=== PATIENT | female | born 1955 | race Caucasian/White ===

== ENCOUNTER → 2016-10-25 | Outpatient (CLI) | payer BC ==
[~2016-10-25] MED LIST: BP MED; SIMV10TA5 OR
[2016-10-25 10:48] LABS: BASO % 0.6 %; BASO ABS # 0.04 K/uL (0-0.2); COMPLETE YES; HEMATOCRIT 43.6 % (37-47); IG% 0.3 %; LYMPH ABS # 2.61 K/uL (1.2-3.4); MEAN CELL VOLUME 89.9 fL (80-100); MEAN CORPUSCULAR HEMOGLOBIN 29.7 pg (25-34); MEAN PLATELET VOLUME 9.5 fL (7.4-10.4); MONO % 7.9 %; NEUT % 52.2 %; PLATELET COUNT 285 K/uL (130-400); RED BLOOD COUNT 4.85 M/uL (4.2-5.4); WHITE BLOOD COUNT 7.06 K/uL (4.8-10.8)
[2016-10-25 11:08] LABS: URINE APPEARANCE CLEAR (CLEAR); URINE BILIRUBIN NEG (NEG); URINE COLOR DK YELLOW; URINE NITRITE NEG (NEG); URINE PH 5.5 (4.5-7.5); URINE SPECIFIC GRAVITY 1.027 (1.000-1.030); UROBILINOGEN NEG (NEG)
[2016-10-25 11:11] LABS: MANUAL MICROSCOPIC REQUIRED? NO; REVIEW REQ? NO
[2016-10-25 11:27] LABS: BLOOD UREA NITROGEN 14 mg/dl (7-18); BUN/CREATININE RATIO 18.3 (10-20); CARBON DIOXIDE 28 mmol/L (21-32); CHLORIDE 107 mmol/L (98-107); CREATININE 0.79 mg/dl (0.60-1.20); GLUCOSE 96 mg/dl (70-99); POTASSIUM 4.2 mmol/L (3.5-5.1); SODIUM 142 mmol/L (136-145)
[2016-10-25 11:28] LABS: ALB/GLOB RATIO 0.9 (0.9-2); ALT/SGPT 52 U/L (12-78); AST/SGOT 31 U/L (15-37); CALCIUM 8.8 mg/dl (8.5-10.1); CHOLESTEROL 174 mg/dl (0-200)
[2016-10-25 11:38] LABS: ALKALINE PHOSPHATASE 96 U/L (45-117); CHOLESTEROL/HDL RATIO 3.8; HDL CHOLESTEROL 46 mg/dl; LDL CHOLESTEROL CALCULATED 93 mg/dl; TRIGLYCERIDES 173 mg/dl (0-150); VERY LOW DENSITY LIPOPROT CALC 35 mg/dl
== END | disposition home or self-care (01) ==
LOC: C.LABBC 08:08
PROVIDERS: ATTEND Nurse Practitioner Adult Health
DX: R39.15 Urgency of urination (principal); G47.19 Other hypersomnia; E78.5 Hyperlipidemia, unspecified; I10 Essential (primary) hypertension

== ENCOUNTER → 2016-10-31 | Outpatient (CLI) | payer BC ==
--- NOTE | 2016-10-31 08:38 | DIAGNOSTIC IMAGING REPORT ---
EXAMINATION: PELVIC ULTRASOUND [is transabdominal and endovaginal scanning) CLINICAL HISTORY: D25.9 Uterus [id number] Female pelvic painR19.4 Change in bowel COMPARISON STUDY: October 2006 FINDINGS: The uterus measured 6.4 x 2.6 x 2.2 cm. There is a suspected 4.5 cm right uterine fibroid. There is a second presumed fibroid within the lower uterine segment anteriorly measuring 13 mm.. The endometrial stripe measured 4 mm. The right ovary measured 31 x 18 x 29 mm. It should be noted that the ovary was poorly visualized.. The left ovary measured not visualized. There is no ultrasonographic evidence of ovarian torsion. It should be noted that ovarian torsion can be present with normal Doppler ultrasonographic findings. There was no evidence of pathologic free pelvic fluid. IMPRESSION: 1. Somewhat limited study from a technical standpoint. 2. 2 uterine fibroids are suspected measuring 4.5 cm and 1.3 cm respectively. 3. No right ovarian abnormalities identified. Nonvisualization of the left ovary Electronically signed by: Niranjan Orourke M.D. 10/31/2016 8:37 AM Dictated Date/Time: 10/31/2016 8:34 AM
--- NOTE | 2016-11-03 09:59 | DIAGNOSTIC IMAGING REPORT ---
EXAMINATION: PELVIC ULTRASOUND [is transabdominal and endovaginal scanning) CLINICAL HISTORY: D25.9 Uterus [id number] Female pelvic painR19.4 Change in bowel COMPARISON STUDY: October 2006 FINDINGS: The uterus measured 6.4 x 2.6 x 2.2 cm. There is a suspected 4.5 cm right uterine fibroid. There is a second presumed fibroid within the lower uterine segment anteriorly measuring 13 mm.. The endometrial stripe measured 4 mm. The right ovary measured 31 x 18 x 29 mm. It should be noted that the ovary was poorly visualized.. The left ovary measured not visualized. There is no ultrasonographic evidence of ovarian torsion. It should be noted that ovarian torsion can be present with normal Doppler ultrasonographic findings. There was no evidence of pathologic free pelvic fluid. IMPRESSION: 1. Somewhat limited study from a technical standpoint. 2. 2 uterine fibroids are suspected measuring 4.5 cm and 1.3 cm respectively. 3. No right ovarian abnormalities identified. Nonvisualization of the left ovary Electronically signed by: Niranjan Orourke M.D. 10/31/2016 8:37 AM Dictated Date/Time: 10/31/2016 8:34 AM
== END | disposition home or self-care (01) ==
LOC: C.ULTR 07:38
PROVIDERS: ATTEND Nurse Practitioner Adult Health
DX: D25.9 Leiomyoma of uterus, unspecified (principal); R10.2 Pelvic and perineal pain; R19.4 Change in bowel habit

== ENCOUNTER → 2016-12-22 | Outpatient (CLI) | payer BC | END | disposition home or self-care (01) | LOC: C.PAPS 18:00 | PROVIDERS: ATTEND Obstetrics & Gynecology | DX: Z01.419 Encounter for gynecological examination (general) (routine) without abnormal findings (principal); N95.2 Postmenopausal atrophic vaginitis ==

== ENCOUNTER → 2017-02-05 | Outpatient (CLI) | payer BC ==
--- NOTE | 2017-02-05 14:05 | MAMMOGRAPHY REPORT ---
BILATERAL DIGITAL SCREENING MAMMOGRAM TOMOSYNTHESIS WITH CAD: 02/05/2017 CLINICAL HISTORY: Routine screening. Patient has no complaints. TECHNIQUE: Breast tomosynthesis in addition to standard 2D mammography was performed. Current study was also evaluated with a Computer Aided Detection (CAD) system. COMPARISON: Comparison is made to exams dated: 02/04/2016 mammogram, 01/31/2015 mammogram, 01/30/2014 m ammogram, 01/27/2013 mammogram, 11/03/2011 mammogram, and 09/16/2010 mammogram - [facility] nter. BREAST COMPOSITION: There are scattered areas of fibroglandular density in both breasts. FINDINGS: No suspicious masses, calcifications, or areas of architectural distortion are noted in ei ther breast. There has been no significant interval change compared to prior exams. IMPRESSION: ACR BI-RADS CATEGORY 1: NEGATIVE There is no mammographic evidence of malignancy. A 1 year screening mammogram is recommended. The pa tient will receive written notification of the results. Approximately 10% of breast cancers are not detected with mammography. A negative mammographic report should not delay biopsy if a clinically suggestive mass is present. Itzel Lion M.D. ah/:02/05/2017 11:59:47 Chin Strap Maker: Destiney CARO,R, M, [facility] letter sent: Normal 1/2 BI-RADS Code: ACR BI-RADS Category 1: Negative
== END | disposition home or self-care (01) ==
LOC: C.MAMM 09:43
PROVIDERS: ATTEND Family Medicine
DX: Z12.31 Encounter for screening mammogram for malignant neoplasm of breast (principal)

== ENCOUNTER → 2017-03-24 | Outpatient (CLI) | payer BC ==
--- NOTE | 2017-03-24 16:03 | DIAGNOSTIC IMAGING REPORT ---
PELVIS/BILATERAL HIP 2 VIEWS CLINICAL HISTORY: Bilateral hip pain. Deep groin pain. COMPARISON STUDY: CT of the abdomen and pelvis July 29, 2010. FINDINGS: The sacroiliac joints and symphysis pubis are intact. There is no acute fracture within the pelvis or the hips. No suspicious osseous lesion is identified. Joint spaces are preserved. There is mild osteophytosis of both hips. IMPRESSION: 1. No acute fracture within the pelvis or hips. 2. Mild osteoarthritis of both hips, greater on the left. Electronically signed by: Piter Cook M.D. 03/24/2017 4:01 PM Dictated Date/Time: 03/24/2017 4:00 PM
== END | disposition home or self-care (01) ==
LOC: C.RAD1850 14:58
PROVIDERS: ATTEND Nurse Practitioner Adult Health
DX: M16.0 Bilateral primary osteoarthritis of hip (principal); R10.30 Lower abdominal pain, unspecified

== ENCOUNTER → 2017-06-19 | Outpatient (CLI) | payer BC ==
[~2017-06-19] VITALS: Ht 154.9 cm; Wt 101.2 kg
[~2017-06-19] MED LIST changes: +ASPI81TA28 PO; +CHOL20005 PO; +DLCSR180 PO; +MULT-506 PO; +OMEG10007 PO; +RANI150T85 PO; +ZCR20 PO
[2017-06-19 12:56] VITALS: BP 137/84; PULSE 83; Ht 154.9 cm; Wt 101.2 kg
== END | disposition home or self-care (01) ==
LOC: C.NEUR 12:25
PROVIDERS: ATTEND Internal Medicine Pulmonary Disease
DX: G47.30 Sleep apnea, unspecified (principal); I10 Essential (primary) hypertension

== ENCOUNTER → 2017-09-10 | Outpatient (CLI) | payer BC ==
[~2017-09-10] MED LIST changes: -ASPI81TA28 PO; -CHOL20005 PO; -DLCSR180 PO; -MULT-506 PO; -OMEG10007 PO; -RANI150T85 PO; -ZCR20 PO
--- NOTE | 2017-09-10 13:28 | DIAGNOSTIC IMAGING REPORT ---
FLUOROSCOPIC GUIDED LEFT HIP STEROID INJECTION FLUOROSCOPY TIME: 4 seconds. A single fluoroscopic spot image of the left hip. HISTORY: Left hip pain.. PROCEDURE: After obtaining written informed consent, the patient was placed supine on the fluoroscopy table. A suitable site for needle insertion was marked using fluoroscopic guidance. The left hip was prepped and draped in the usual sterile fashion. 1% lidocaine was used for skin, subcutaneous and deep soft tissue anesthesia. Under intermittent fluoroscopic guidance, a 22 gauge x 3.5 inch spinal needle was inserted into the left hip joint. 2 cc of Optiray 300 was injected to confirm the intra-articular location. This is followed by a mixture of 5cc of 0.5% bupivacaine and 2 cc of betamethasone at the request of the referring physician. The needle was then removed. There were no apparent complications. IMPRESSION: Fluoroscopic-guided left hip steroid injection without immediate complication. Electronically signed by: Richar Bowen M.D. 09/10/2017 1:27 PM Dictated Date/Time: 09/10/2017 1:26 PM
== END | disposition home or self-care (01) ==
LOC: C.RADBC 12:41
PROVIDERS: ATTEND Orthopaedic Surgery
DX: M16.12 Unilateral primary osteoarthritis, left hip (principal)

== ENCOUNTER 2017-10-07 19:09 | Emergency (ER) | payer BC ==
[~2017-10-07] VITALS: Ht 154.9 cm; Wt 100.2 kg
[2017-10-07 19:14] VITALS: TEMP 37; Ht 154.9 cm; Wt 100.2 kg
[2017-10-07 20:00] VITALS: O2SAT 96
[2017-10-07] MEDS ORDERED: GI COCKTAIL PO STA (20:09)
[2017-10-07 20:34] LABS: HEMATOCRIT 44.9 % (37-47); HEMOGLOBIN 15.2 g/dL (12.0-16.0); MEAN CORPUSCULAR HEMOGLOBIN 29.8 pg (25-34); MEAN CORPUSCULAR HGB CONC 33.9 g/dl (32-36); MEAN PLATELET VOLUME 8.8 fL (7.4-10.4); PLATELET COUNT 307 K/uL (130-400); RED CELL DISTRIBUTION WIDTH CV 13.7 % (11.5-14.5); RED CELL DISTRIBUTION WIDTH SD 44.1 fL (36.4-46.3); WHITE BLOOD COUNT 10.31 K/uL (4.8-10.8)
[2017-10-07] MEDS ORDERED: ALUMINUM/MAGNESIUM SUSP 30 ML UDC ONE (20:38)
[2017-10-07] MEDS ORDERED: LIDOCAINE HCL 2% VISC SOLN 20 ML UDC ONE (20:38)
[2017-10-07 20:44] LABS: PTT PATIENT 29.9 SECONDS (21.0-31.0)
[2017-10-07 20:45] LABS: CALCIUM 9.2 mg/dl (8.5-10.1); CREATININE 0.97 mg/dl (0.60-1.20); POTASSIUM 3.8 mmol/L (3.5-5.1)
[2017-10-07 20:50] LABS: CKMB 3.9 ng/ml (0.5-3.6); TOTAL PROTEIN 7.9 gm/dl (6.4-8.2)
--- NOTE | 2017-10-07 20:52 | DIAGNOSTIC IMAGING REPORT ---
CHEST ONE VIEW PORTABLE CLINICAL HISTORY: 62 years-old Female presenting with CP. TECHNIQUE: Portable upright AP view of the chest was obtained. COMPARISON: 10/17/2006. FINDINGS: Atherosclerosis of aortic arch. Cardiac silhouette mildly enlarged. No focal opacity. No large effusion or pneumothorax. Osseous structures normal. Upper abdomen normal. IMPRESSION: 1. Mild cardiomegaly. No other convincing evidence of acute cardiopulmonary disease. Electronically signed by: Rikki Ibrahim M.D. 10/07/2017 8:51 PM Dictated Date/Time: 10/07/2017 8:50 PM
[2017-10-07 22:12] VITALS: BP 151/100; PULSE 79; O2SAT 93
--- NOTE | 2017-10-08 03:26 | EMERGENCY ROOM VISIT NOTE ---
History Report prepared by Flor: Tanner Orr Under the Supervision of: Dr. Carl Yin M.D. First contact with patient: 20:03 Chief Complaint: CARDIAC ASSESSMENT Stated Complaint: CHEST DISCOMFORT Nursing Triage Summary: pt reports chest discomfort all over chest X 2 weeks denies increased sob or radiation History of Present Illness The patient is a 62 year old female who presents to the Emergency Room with complaints of intermittent chest pain beginning two weeks ago. She rates her discomfort as a 3/10 in severity. The patient states she is unsure if she woke up with chest discomfort but reports she has had it for 12 hours persistently today. She reports her symptoms have been accompanied by hot flashes and increased burping. The patient states she took Tums this morning and was given Aspirin at [facility] The patient states she went to [facility] where they sent her here. The patient denies LOC, headache, fevers, chills, diaphoresis, visual changes, neck pain, tearing pain radiating to the back, personal history or family history of aneurysm or pulmonary embolism, uncontrolled hypertension, breathing difficulties, leg swelling, coagulation abnormalities, prolonged travel, recent surgery or immobilization, nausea, vomiting, abdominal pain, melena, hematochezia, urinary symptoms, numbness, weakness, lymphadenopathy, rash, or other complaints. The patient reports a history of hypertension and vertigo. She denies a smoking history. Source of History: patient Onset: two weeks ago Position: chest Symptom Intensity: 3/10 Timing: intermittent Modifying Factors (Relieving): other (Tums, aspirin) Note: Associated symptoms: increased burping and hot flashes Review of Systems See HPI for pertinent positives and negatives. A total of ten systems were reviewed and were otherwise negative. Past Medical & Surgical Medical Problems: (1) HTN (hypertension) (2) Hypertension (3) Vertigo Family History Cancer Heart disease Hypertension Social History Smoking Status: Never Smoker Housing Status: lives alone Occupation Status: employed Current/Historical Medications Miscellaneous Medications Simvastatin (Zocor), 10 MG OR [Bp Med] Allergies Coded Allergies: No Known Allergies (Unverified , 09/16/09) Physical Exam Vital Signs Date Time Temp Pulse Resp B/P (MAP) Pulse Ox O2 Delivery O2 Flow Rate FiO2 10/07/17 22:12 79 20 151/100 93 Room Air 10/07/17 20:41 81 21 143/94 94 Room Air 10/07/17 20:16 91 10/07/17 20:04 80 20 166/103 96 Room Air 10/07/17 20:00 96 Room Air 10/07/17 19:14 37.0 92 20 159/105 95 Room Air Physical Exam GENERAL: Awake, alert, well-appearing, in no distress HENT: Normocephalic, atraumatic. Oropharynx unremarkable. EYES: Normal conjunctiva. Sclera non-icteric. NECK: Supple. No nuchal rigidity. FROM. No masses. RESPIRATORY: Clear to auscultation. No wheezes. No rales. Normal respiratory effort. CARDIAC: Normal rate. Normal rhythm. No murmurs. No rubs. Extremities warm and well perfused. Pulses equal. No JVD. GI: Soft, non-distended. No tenderness to palpation. No rebound or guarding. No masses. RECTAL: Deferred. MUSCULOSKELETAL: Atraumatic. Chest examination reveals no tenderness. There is no CVA tenderness to palpation. No joint edema. LOWER EXTREMITIES: Calves are equal size bilaterally and non-tender. No edema. No discoloration. NEURO: Normal sensorium. No sensory or motor deficits noted. SKIN: No rash or jaundice noted. Medical Decision & Procedures ER Provider Diagnostic Interpretation: X-ray: Per my interpretation, radiologist review. CHEST ONE VIEW PORTABLE CLINICAL HISTORY: 62 years-old Female presenting with CP. TECHNIQUE: Portable upright AP view of the chest was obtained. COMPARISON: 10/17/2006. FINDINGS: Atherosclerosis of aortic arch. Cardiac silhouette mildly enlarged. No focal opacity. No large effusion or pneumothorax. Osseous structures normal. Upper abdomen normal. IMPRESSION: 1. Mild cardiomegaly. No other convincing evidence of acute cardiopulmonary disease. Electronically signed by: Rikki Ibrahim M.D. 10/07/2017 8:51 PM Dictated Date/Time: 10/07/2017 8:50 PM Laboratory Results 10/07/17 20:05 10/07/17 20:05 Test 10/07/17 20:05 10/07/17 20:16 10/07/17 21:38 Red Blood Count 5.10 M/uL (4.2-5.4) Mean Corpuscular Volume 88.0 fL (80-100) Mean Corpuscular Hemoglobin 29.8 pg (25-34) Mean Corpuscular Hemoglobin Concent 33.9 g/dl (32-36) RDW Standard Deviation 44.1 fL (36.4-46.3) RDW Coefficient of Variation 13.7 % (11.5-14.5) Mean Platelet Volume 8.8 fL (7.4-10.4) Prothrombin Time 10.7 SECONDS (9.0-12.0) Prothromb Time International Ratio 1.0 (0.9-1.1) Activated Partial Thromboplast Time 29.9 SECONDS (21.0-31.0) Partial Thromboplastin Ratio 1.2 Anion Gap 7.0 mmol/L (3-11) Est Creatinine Clear Calc Drug Dose 66.1 ml/min Estimated GFR () 73.1 Estimated GFR (Non- 63.0 BUN/Creatinine Ratio 14.2 (10-20) Calcium Level 9.2 mg/dl (8.5-10.1) Total Bilirubin 0.5 mg/dl (0.2-1) Aspartate Amino Transf (AST/SGOT) 29 U/L (15-37) Alanine Aminotransferase (ALT/SGPT) 48 U/L (12-78) Alkaline Phosphatase 100 U/L (45-117) Total Creatine Kinase 296 U/L (26-192) Creatine Kinase MB 3.9 ng/ml (0.5-3.6) Creatine Kinase MB Ratio 1.3 (0-3.0) Total Protein 7.9 gm/dl (6.4-8.2) Albumin 4.0 gm/dl (3.4-5.0) Globulin 3.9 gm/dl (2.5-4.0) Albumin/Globulin Ratio 1.0 (0.9-2) Bedside D-Dimer 148 ng/mlFEU (0-450) Bedside Troponin I < 0.030 ng/ml (0-0.045) Laboratory results reviewed by me Medications Administered Medications (Trade) Dose Ordered Sig/Candice Route Start Time Stop Time Status Last Admin Dose Admin Lidocaine HCl (Viscous Lidocaine 2% Soln) 20 ml STK-MED ONCE .ROUTE 10/07/17 20:38 10/07/17 20:39 DC 10/07/17 20:41 20 ML Al Hydroxide/Mg Hydroxide (Maalox Susp) 30 ml STK-MED ONCE .ROUTE 10/07/17 20:38 10/07/17 20:39 DC 10/07/17 20:41 30 ML ECG Per My Interpretation Indication: chest pain Rate (beats per minute): 89 Rhythm: normal sinus Findings: no acute ischemic change, no ectopy, other (Normal intervals) Change: [facility] EKG: Sinus rhythm with a rate of 90, questionable Septal Q wave, otherwise no ischemia or ectopy. REPEAT: Normal sinus with a rate of 78. Normal intervals, no acute ischemia, no ectopy ED Course 2007: The patient was evaluated in room C10. A complete history and physical exam was performed. 2008: Ordered Gi Cocktail 24 ml PO. 2037: Ordered Maalox Susp 30 ml IV, Lidocaine HCL 20 ml IV. 2116: I reevaluated the patient and she is still feeling the same after the Cocktail. 2207: I reevaluated the patient. Discussed results and discharge instructions: She verbalized understanding and agreement. The patient is ready for discharge. Medical Decision Triage Nursing notes reviewed and agree them. The patient's history was concerning for chest pain. Differential diagnosis: Etiologies such as musculoskeletal,gastrointestinal, cardiac ischemia, aortic dissection, pulmonary embolism, pneumonia, pneumothorax, infections, pericarditis, myocarditis, esophageal rupture, as well as others were entertained. Physical examination: As above. ER treatment provided: GI cocktail On reassessment the patient felt about the same. Diagnostic interpretation by me: The electrocardiogram was negative for pathologic change 2. The labs revealed an unremarkable CBC and chemistry panel. LFTs lipase negative. Troponin negative 2. Additional blood work was felt to be unnecessary given that the patient's pain was present for greater than 12 hours. A d-dimer was performed and it was negative. Based on Wells criteria and a negative dimer no further imaging for PE was performed. Imaging studies: Chest x-ray as above The patient is doing very well. She had a slight elevation of her total CK which could explain her discomfort in her chest. Her troponin was negative 2. Her pain is been there for quite some time. She has no ischemic changes on EKG. I discussed close outpatient follow-up for further evaluation including outpatient stress testing and the patient felt comfortable with this. I gave my usual and customary discussion regarding this issue. By the evaluation outlined above other emergent etiologies such as those listed in the differential, as well as others, were deemed relatively unlikely. The patient was educated about the findings as listed above. All questions were answered and the patient was pleased with the treatment. Return instructions were outlined and the patient was discharged in stable condition. The patient was referred to her PCP tomorrow as scheduled for follow-up for a recheck of the current condition. Medication Reconcilliation Current Medication List: was personally reviewed by me Blood Pressure Screening Patient's blood pressure: Elevated blood pressure Blood pressure disposition: Referred to PCP Impression Primary Impression: Substernal chest pain Scribe Attestation The scribe's documentation has been prepared under my direction and personally reviewed by me in its entirety. I confirm that the note above accurately reflects all work, treatment, procedures, and medical decision making performed by me. Departure Information Dispostion Home / Self-Care Referrals Priyanka Andrews MD (PCP) Forms IMPORTANT VISIT INFORMATION Patient Instructions My [facility] Additional Instructions CHEST PAIN INSTRUCTIONS: Take 1 baby aspirin, 81 mg daily until directed otherwise by your primary doctor. Ibuprofen(Motrin, Advil) may be used for fever or pain. Use 600mg every six hours as needed. Take with food. Avoid using more than 2400mg in a 24 hour period. Do not use 2400mg per day for more than three consecutive days without physician direction. Prolonged inappropriate use can lead to stomach upset or ulcers. (AND/OR) Acetaminophen(Tylenol) may be used for fever or pain. Use 1000mg every six hours as needed. Avoid using more than 4000mg in a 24 hour period. Rest and drink plenty of fluids as tolerated. Continue current medications. Avoid strenuous activities and anything that worsens your pain. Resume normal activities once your symptoms resolve. Return to the ER immediately for worsening or persistent chest pain, abdominal pain, vomiting, fevers, chest pains, difficulty breathing, worsening of your condition, or as needed. Follow up with your primary physician tomorrow for a recheck of your current condition. Discuss stress testing.
== END 2017-10-07 22:30 | disposition home or self-care (01) ==
LOC: C.EDB 19:10 → C.EDC 22:30
DX: R07.2 Precordial pain (principal); I10 Essential (primary) hypertension

== ENCOUNTER → 2017-10-17 | Outpatient (CLI) | payer BC | END | disposition home or self-care (01) | LOC: C.LABSPEC 10:48 | PROVIDERS: ATTEND Nurse Practitioner Family | DX: R10.9 Unspecified abdominal pain (principal) ==

== ENCOUNTER → 2018-02-04 | Day surgery (SDC) | payer BC ==
[2018-02-02 10:24] VITALS: Ht 154.9 cm; Wt 90.9 kg
[~2018-02-04] VITALS: Ht 154.9 cm; Wt 90.9 kg
[~2018-02-04] MED LIST changes: +ASPI81TA28 PO; -BP MED; +CEFAZOLIN 2000MG IV PUSH 15 ML IV SCH; +CHOL20005 PO; +DLCSR180 PO; +FENTANYL CITRATE INJ 50 MCG/1 ML 2 ML VIAL ONE; +LACTATED RINGER'S 1000ML 1,000 ML IV SCH; +LIDOCAINE HCL 2% 2 ML VIAL (20MG/ML) ONE; +MIDAZOLAM HCL 1 MG/ML 2ML VIAL ONE; +MULT-506 PO; +OMEG10007 PO; +PROPOFOL IV EMULSION 10 MG/ML 20 ML VIAL ONE; +RANI150T85 PO; -SIMV10TA5 OR; +ZCR20 PO
== END | disposition home or self-care (01) ==
LOC: EDSTATUS 11:30 → C.PAT 12:50
PROVIDERS: ATTEND Orthopaedic Surgery
DX: G56.01 Carpal tunnel syndrome, right upper limb (principal)

== ENCOUNTER → 2018-02-08 | Outpatient (CLI) | payer BC ==
[~2018-02-08] MED LIST changes: -CEFAZOLIN 2000MG IV PUSH 15 ML IV SCH; -FENTANYL CITRATE INJ 50 MCG/1 ML 2 ML VIAL ONE; -LACTATED RINGER'S 1000ML 1,000 ML IV SCH; -LIDOCAINE HCL 2% 2 ML VIAL (20MG/ML) ONE; -MIDAZOLAM HCL 1 MG/ML 2ML VIAL ONE; -PROPOFOL IV EMULSION 10 MG/ML 20 ML VIAL ONE
--- NOTE | 2018-02-09 06:57 | MAMMOGRAPHY REPORT ---
BILATERAL DIGITAL SCREENING MAMMOGRAM TOMOSYNTHESIS WITH CAD: 02/08/2018 CLINICAL HISTORY: Routine screening. Patient has no complaints. TECHNIQUE: The study was acquired using full field digital technology and interpreted from soft copy. Breast tomosynthesis in addition to standard 2D mammography was performed. Current study was also ev aluated with a Computer Aided Detection (CAD) system. COMPARISON: Comparison is made to exams dated: 02/05/2017 mammogram, 02/04/2016 mammogram, 01/31/2015 m ammogram, 01/30/2014 mammogram, 01/27/2013 mammogram, and 11/03/2011 mammogram - [facility] nter. BREAST COMPOSITION: There are scattered areas of fibroglandular density in both breasts. FINDINGS: The parenchymal pattern is unchanged. No developing mass, architectural distortion or cluster of susp icious microcalcifications is seen in either breast. There is a stable subcentimeter intramammary ly mph node in the left upper outer quadrant posteriorly, and a stable oval focal asymmetry in the 3:00 anterior left breast, both of which appear similar dating back to at least 2008. IMPRESSION: ACR BI-RADS CATEGORY 2: BENIGN There is no mammographic evidence of malignancy. A 1 year screening mammogram is recommended.( 019) The patient will receive written notification of the results. Some breast cancers are not detected with mammography. A negative mammographic report should not merlin y biopsy if a clinically suggestive mass is present. Amna Gardner M.D. ay/:02/08/2018 14:35:15 Residential Mortgage Underwriter: RT Shree(Johanna)(M), [facility] letter sent: Normal 1/2 BI-RADS Code: ACR BI-RADS Category 2: Benign
== END | disposition home or self-care (01) ==
LOC: C.MAMM 12:13
PROVIDERS: ATTEND Family Medicine
DX: Z12.31 Encounter for screening mammogram for malignant neoplasm of breast (principal)

== ENCOUNTER 2021-12-17 05:17 | Observation (INO) ==
--- NOTE | 2021-11-15 16:32 | PAT Medication Instructions ---
Medication Instructions Date of Service November 15, 2021 Home Medications Medication Instructions Recorded diclofenac sodium 50 mg 50 mg PO BID PRN #30 tab 04/26/20 tablet,delayed release buspirone 5 mg tablet 5 mg PO BID #60 tab 09/11/21 diltiazem HCl 180 mg capsule,24 180 mg PO DAILY #90 cap 09/18/21 hr,extended release simvastatin 20 mg tablet 20 mg PO QPM #90 tab 09/18/21 meloxicam 7.5 mg tablet 7.5 mg PO DAILY PRN #60 tab 10/07/21 aspirin 81 mg tablet,delayed release (Aspir-) 81 mg PO QAM multivitamin (Daily Multi-Vitamin) 1 tab PO DAILY diclofenac sodium 50 mg tablet,delayed release 50 mg PO BID PRN buspirone 5 mg tablet 5 mg PO BID diltiazem HCl 180 mg capsule,24 hr,extended release 180 mg PO DAILY simvastatin 20 mg tablet 20 mg PO QPM meloxicam 7.5 mg tablet 7.5 mg PO DAILY PRN doxycycline hyclate 50 mg tablet 50 mg PO QAM Continue as directed diltiazem HCl 180 mg capsule,24 hr,extended release 180 mg PO DAILY doxycycline hyclate 50 mg tablet 50 mg PO QAM ASK your surgeon for instructions diclofenac sodium 50 mg tablet,delayed release 50 mg PO BID PRN meloxicam 7.5 mg tablet 7.5 mg PO DAILY PRN DO NOT take the morning of surgery multivitamin (Daily Multi-Vitamin) 1 tab PO DAILY Take morning of surgery With a small sip of water, OTHERWISE NOTHING TO EAT OR DRINK AFTER MIDNIGHT: aspirin 81 mg tablet,delayed release (Aspir-) 81 mg PO QAM (unless surgeon directed otherwise) buspirone 5 mg tablet 5 mg PO BID Take evening before surgery buspirone 5 mg tablet 5 mg PO BID simvastatin 20 mg tablet 20 mg PO QPM Other Notes If you have any questions please call us at [phone] or [phone] or [phone] or [phone]
--- NOTE | 2021-11-19 09:53 | Anesthesiology Consultation ---
Date of Service November 19, 2021 Assessment & Plan (1) Encounter for pre-operative examination: - COVID screening: Per assessment on 11/19/2021: Travel screen negative, no known COVID-19 positive contacts or current COVID-19 related symptoms in past 2 weeks. Pt vaccinated. Surgeon arranging preop COVID testing, scheduled 12/13/2021. Awaiting results. Chart Review Chart Review: Acceptable Risk for Surgery and Patient seen in Pre Admission Testing Teaching & Discussion Pre-Anesthesia Teaching/Discussion Notes: Instructed NPO after midnight before surgery, except medications with 15 cc of water. Medication instructions provided according to the PAT guidelines. History Surgery Operation Date: 12/17/21 08:50 Proposed Procedures p Left Total Hip Arthroplasty - Scott Desir MD Height/Weight Height: 5 ft 1 in Weight: 89.4 kg Allergies Allergy/AdvReac Type Severity Reaction Status Date / Time No Known Drug Allergies Allergy Verified 11/15/21 14:49 Medications Home Medications Medication Instructions Recorded Confirmed Last Taken aspirin 81 mg tablet,delayed 81 mg PO QAM 04/05/19 11/15/21 Unknown release (Aspir-) multivitamin (Daily Multi-Vitamin) 1 tab PO DAILY 04/05/19 11/15/21 Unknown diclofenac sodium 50 mg 50 mg PO BID PRN #30 tab 04/26/20 11/15/21 Unknown tablet,delayed release buspirone 5 mg tablet 5 mg PO BID #60 tab 09/11/21 11/15/21 Unknown diltiazem HCl 180 mg capsule,24 180 mg PO DAILY #90 cap 09/18/21 11/15/21 Unknown hr,extended release simvastatin 20 mg tablet 20 mg PO QPM #90 tab 09/18/21 11/15/21 Unknown meloxicam 7.5 mg tablet 7.5 mg PO DAILY PRN #60 tab 10/07/21 11/15/21 Unknown doxycycline hyclate 50 mg tablet 50 mg PO QAM 11/15/21 11/15/21 Unknown Past Medical History Medical History (Updated 11/19/21 @ 10:11 by Edna Terry PA-C) Anxiety H/O gastroesophageal reflux (GERD) controlled, stable per pt Hyperlipidemia Hypertension controlled, stable per pt Migraine hx-states very rare now- related to vertigo Moderate obstructive sleep apnea on CPAP, follows with [facility] Positional vertigo TMJ (temporomandibular joint disorder) wears mouthguard, occ. clicking, no locking Patient denies h/o stroke, seizures, heart attack, heart failure, DM, blood clots or blood transfusions. Exercise / Class Metabolic Activity II 4-5 Yardwork/Stairs/Walk up hill (occ SOB with 1 FOS ongoing x 1-2 yrs with reduced physical activity d/t knee and hip pain, denies chest discomfort) Past Family History Family History Grandmother (Paternal) Myocardial infarction Hypertension Grandfather (Paternal) Myocardial infarction Hypertension Aunt Breast cancer Father Colon cancer Hypertension Other Heart disease No family history of adverse response to anesthesia No family history of bleeding disorder Denies family history of Ovarian cancer Prostate cancer Past Surgical History Surgical History History of carpal tunnel repair left History of dilatation and curettage History of oral surgery Past Anesthesia History No Hx of Anesthesia Complications and No Family Hx of Anesthesia Complications History of PONV No Hx of PONV and No Hx of Motion Sickness Social History Smoking Status: Never smoker Do You Dip or Chew Tobacco: No Hx Alcohol Use: Yes Alcohol type: wine alcohol intake frequency: a few times a week Hx Substance Use: No substance use type: does not use Review of Systems Patient denies chest pain, shortness of breath, dyspnea on exertion, fever, chills, cough, wheezing, or palpitations. Physical Exam Vital Signs Vitals BP 143/87 P 78 TEMP 98.8 SP02 96% on RA RESP 17 Physical Full cervical extension range of motion without pain TMD 3.5 finger breaths Mallampati Score 4 Dentition: intact, one crown-right upper back; denies chipped or loose teeth, implants or bridges Lungs: normal respiratory effort. Clear throughout to auscultation, no adventitious breath sounds Cardiac: regular rate and rhythm, no murmurs noted Carotid arteries: negative bruit bilat Lab Results Anesthesia Preop Results Results Anesthesia Widget: WBC 6.89 K/uL (4.8-10.8) 11/19/21 Hgb 14.8 g/dL (12.0-16.0) 11/19/21 Hct 45.1 % (37-47) 11/19/21 Plt 299 K/uL (130-400) 11/19/21 Na 140 mmol/L (136-145) 11/19/21 K 4.4 mmol/L (3.5-5.1) 11/19/21 Cl 103 mmol/L (98-107) 11/19/21 CO2 31 mmol/L (21-32) 11/19/21 BUN 13 mg/dl (6-23) 11/19/21 Creat 0.78 mg/dl (0.6-1.2) 11/19/21 Glucose Level 88 mg/dl (70-99(Fasting)) 11/19/21 PT 10.8 Seconds (9.0-12.0) 11/19/21 PTT 30.5 Seconds (21.0-31.0) 11/19/21 INR 1.0 (0.9-1.1) 11/19/21 Blood Type O Positive 11/19/21 Antibody Screen NEGATIVE 11/19/21 Testing Electrocardiogram Date: 11/19/21 NSR, rate 71 bpm Chest X-Ray Date: 11/19/21 Cardiomediastinal and hilar silhouettes are within normal limits. No pneumothorax, pleural effusion, airspace consolidation or overt pulmonary edema. Degenerative changes of the shoulders and spine. IMPRESSION: No acute process. Other Testing Carotid duplex 03/27/20 < 50% stenosis ICAs bilat
--- NOTE | 2021-12-14 09:30 | History and Physical Report ---
DATE OF ADMISSION: 12/17/2021 CHIEF COMPLAINT: Persistent progressive left hip pain. HISTORY OF PRESENT ILLNESS: The patient is a 66-year-old female referred by my partner, Dr. Lam ruggiero or treatment of her left hip. She has a several-year history of increasing left hip pain and discomf ort. It started on the lateral side of the hip and then that became more intra-groin. She has had s everal shots, which have become less effective over time. Pain is radiating into the groin area and her hip has become very stiff. She has difficulty putting her shoes and socks on. She limps more as the day goes on. She takes medicines with minimal relief. She is interested in having her hip fixe d. PAST MEDICAL HISTORY: Significant for: 1. Hypertension. 2. Elevated cholesterol. 3. Sleep apnea with CPAP machine. 4. Obesity. 5. Skin cancer. PAST SURGICAL HISTORY: Includes: 1. Carpal tunnel release. 2. Uterine polyp removal. ALLERGIES: None. CURRENT MEDICATIONS: Include: 1. Aspirin. 2. Buspirone. 3. Topical diclofenac. 4. Diltiazem. 5. Meloxicam. 6. Multivitamin. 7. [place]-3. 8. Simvastatin. SOCIAL HISTORY: A 66-year-old female. She is single. Lives alone. 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 Does not smoke. FAMILY HISTORY: Noncontributory. REVIEW OF SYSTEMS: Negative for diabetes. No chest pain or shortness of breath. No history of DVT or PE. PHYSICAL EXAMINATION: GENERAL: Shows a pleasant middle-aged female. Looks to be in reasonably good health. HEENT: Benign. NECK: Supple. No lymphadenopathy. LUNGS: Clear to auscultation. HEART: Has a regular rate and rhythm. ABDOMEN: Soft, nontender, nondistended. EXTREMITIES: Grossly neurovascularly intact except as follows: Examination of the left hip revealed the patient walks with a slightly antalgic gait. Leg lengths appear pretty equal. She does have a very stiff hip with internal rotation to neutral. This re-creates her pain. Negative straight leg r aise. No knee effusion. She is neurologically intact. X-RAYS: X-rays of left hip were reviewed. It shows advanced hip arthritis. She has got fairly conc entric disease. Loss of joint space circumferentially. She has got osteophytes around the femoral h ead and acetabulum. ASSESSMENT: A 66-year-old female with a several-year history of increasing left hip pain and discomf ort. It has become less responsive to conservative treatment. She would like to have her hip fixed. PLAN: We will take her to the operating room and do left total hip replacement. The risks and benef its of this procedure were explained to the patient including, but not limited to DVT, PE, , inf ection, neurological injury, vascular injury, bleeding problem, pain, limited range of motion, stiffn ess, failure to relieve her symptoms, incomplete relief of symptoms, need for further surgery in the future, fracture, leg length inequality, nerve palsy, etc. The patient understands and desires to pr oceed. Informed consent was obtained. The patient does live by herself. She is planning on getting some help. She is hoping to be dischar ged postoperative day 1 if she does okay in therapy with some home health and some friends' assistjacky king Job ID: [id number]
[2021-12-17] MEDS ORDERED: LR 60ML/HR IV SCH (06:00)
[2021-12-17] MEDS ORDERED: CeleBREX 200 MG CAP PO SCH (06:00)
[2021-12-17] MEDS ORDERED: LR 500ML BOLUS, THEN 15ML/HR IV SCH (06:00)
[2021-12-17] MEDS ORDERED: TRANEXAMIC ACID 1,000 MG **IV Pre-op IV SCH (06:00)
[2021-12-17] MEDS ORDERED: METOCLOPRAMIDE HCL 10 MG TABLET PO SCH (06:00)
[2021-12-17] MEDS ORDERED: FAMOTIDINE 20 MG TAB PO SCH (06:00)
[2021-12-17] MEDS ORDERED: Scopolamine 1 MG TDSY TD SCH (06:00)
[2021-12-17] MEDS ORDERED: ACETAMINOPHEN 500 MG TAB PO SCH (06:00)
[2021-12-17] MEDS ORDERED: ceFAZolin 2000MG 2,000 MG/15 ML SYR IV SCH (06:00)
[2021-12-17] MEDS ORDERED: LIDOCAINE 2% 2 ML VIAL/AMP(20MG/ML) INFIL ONE (06:16)
[2021-12-17] MEDS ORDERED: fentaNYL citrate 100 MCG/2 ML VIAL ONE (06:16)
[2021-12-17] MEDS ORDERED: MIDAZOLAM HCL 1 MG/ML 2ML VIAL ONE (06:16)
[2021-12-17] MEDS ORDERED: PROPOFOL IV EMULSION 10 MG/ML 20 ML VIAL IV ONE ×2 (06:17→08:16)
[2021-12-17] MEDS ORDERED: BUPIVACAINE 0.5 % 5 MG/1 ML PF 10ML VIAL ONE (06:20)
[2021-12-17] MEDS ORDERED: BUPIVACAINE 0.5 % 5 MG/1 ML MPF 30ML VIAL ONE (06:33)
[2021-12-17] MEDS ORDERED: EPINEPHrine INJ 1 MG/ML AMP ONE (06:33)
[2021-12-17] MEDS ORDERED: MoRPHine SULFATE PF 1 MG/ML 10 ML AMP/VIAL ONE (06:48)
--- NOTE | 2021-12-17 06:53 | History & Physical Bridge Note ---
Date of Service December 17, 2021 History & Physical Bridge Note I have examined the patient, reviewed the History & Physical and in the interval since the performance of the History & Physical I have noted the following changes of clinical significance: no changes noted
[2021-12-17] MEDS ORDERED: ONDANSETRON INJ 2 MG/ML 2 ML VIAL ONE (07:29)
--- NOTE | 2021-12-17 08:51 | Operative Report ---
PG Post Operative Report Pre & Post Diagnosis Operation Date: 12/17/21 07:00 Pre-Op Diagnosis: Left Hip Osteoarthritis Post-Op Diagnosis: Left Hip Osteoarthritis I identified the patient and participated in the time-out.: Yes Procedure Operation Date: 12/17/21 07:00 Actual Procedures p Left Total Hip Arthroplasty---uncemented(Left) - Scott Desir MD Surgeon Scott Desir MD Marketing Development Manager Antonio Hendricks PA-C Estimated Blood Loss 200 Findings Consistent with Post-Op Diagnosis Operative findings were advanced left hip DJD. She had a pretty extensive grade 4 [id number] disease of the femoral head and acetabulum. She had fairly concentric disease. She had osteophytes around the acetabulum as well as the femoral head. Moderate-sized joint effusion. Pretty stiff hip preoperatively. Fluids 1500 cc Specimens Left femoral head sent for pathology Drains None Anesthesia Type Spinal MAC Complications none Disposition Accompanied Patient To Recovery: Yes Indications Patient is a 66-year-old female whose had a several year history of increasing left hip pain discomfort gotten significantly worse over the past year. She failed conservative measures. X-rays show progressive hip arthritis. She elected proceed with surgical treatment. Description of Procedure Operative implants consist of: 1 Biomet G7 size 50 mm acetabular shell. 2. 6.5 cancellous acetabular screws 135 mm length and 120 mm length. 3. [place] hole huller operator. 4. Highly cross-linked polyethylene liner with a 50 mm outer diameter and 32 mm inner diameter. 5. DePuy [place] size 9 KLA femoral stem. 6. +1/32 mm ceramic articular ball. The patient was taken to the operating, identified, placed on the operating table supine position protectors were properly padded. IV antibiotics tried by anesthesia team. A spinal anesthetic and been implemented holding area. A Singh catheter was placed in sterile fashion. Patient was then placed in the right lateral decubitus position. An axillary roll was placed. A Stulberg hip positioner was used for positioning. Left hip and leg were then prepped and draped in the usual sterile fashion. A posterolateral approach to the left hip was then performed to a curvilinear incision centered over the greater trochanter. Sharp dissection was carried through subcutaneous tissue down below the IT band gluteal fascia the IT band gluteal fascia incised longitudinally in line with skin incision. The underlying greater bursa was excised. The piriformis and external rotators were tagged and taken off the posterior aspect hip joint capsule. Great care was taken throughout the procedure protect the sciatic nerve at all times. Posteri or capsulotomy was then performed leaving a large flap for later repair. The hip was internally rotated and dislocated. Femoral neck osteotomy cut was made with a Final Cut 10 mm above the lesser trochanter. Femoral head was removed and sent for pathology. The femur was retracted anteriorly. Attention drawn the acetabulum. The acetabular labrum was excised. Much of this was calcified. I did resect some anterior osteophytes circumferentially from around the acetabulum. Sequential reaming the acetabular was then performed begin with size 43 and progressing up to 49. I did reamed a little bit with a 50 reamer and then placed a 50 mm acetabular cup in about 40 degrees lateral opening and 20 degrees of anteversion. Was fixed with two 6.5 cancellous acetabular screws. A trial liner was placed. Attention drawn the femur. The proximal femur was entered with a Paddle8 cutter followed by canal finder. I then broached beginning with 8 and progressing up to a size 9. Excellent fit and the 9. She had a very good cancellous bone envelope. I then used the calcar reamer to smooth off the calcar. Then trialed the hip. The +5 articular ball just seemed a bit too tight. Was fully stable but just soft tissue tension type. Therefore we used the +1/32 mm ceramic articular ball. It was fully stable in full extension and external rotation and flexion to 90 degrees internal Tatian over 50 degrees. Leg length seemed appropriate. Elect to place these implants. Nupathe all trial implants were removed. An apex hole huller operator was placed. Highly cross-linked polyethylene liner was placed. A DePuy size 9 KLA femoral stem was impacted in position. +1/32 mm ceramic articular ball was placed. Hip was located once again found to be stable. Attention drawn toward closing. Wound was irrigated scope sounds pulsatile lavage solution. I did inject locally with 60 cc of half percent Marcaine with epinephrine. Posterior capsule and external rotators were then repaired through drill holes in the posterior trochanter with #2 Tycron suture. The IT band gluteal fascia then closed in 1 PDS suture in a running fashion for the subcutaneous tissues then closed with 2 layers with a deep layer #1 Vicryl suture and subcutaneous tissues with 2-0 Dexon suture in a buried interrupted fashion. Skin was closed skin faviola. Leg was then cleaned and dried and sterile dressing was Xeroform, 4 x 4's, ABD pad, foam tape were applied. The patient was then transferred to the recovery room in stable condition. The patient tolerated the procedure well and there were no complications. Antonio Hendricks, my physician development assistant, was present for the entire procedure. His assistance was essential and required for appropriate patient positioning, prepping and draping, surgical exposure, performing the technical details of the operation, placement the implants, closure of the wound, and placement of the sterile bandage. I attest to the content of the Intraoperative Record and any orders documented therein. Any exceptions are noted below.
--- NOTE | 2021-12-17 09:06 | XRay Report ---
XR hip 1V LT w pelvis HISTORY: 66 years-old Female IN PACU - A/P PELVIS and LATERAL HIP left hip total joint arthroplasty COMPARISON: Left hip radiographs 09/20/2021 TECHNIQUE: AP view of the pelvis with crosstable lateral view of the left hip FINDINGS: Left hip total joint arthroplasty demonstrates satisfactory alignment. Lateral skin faviola are noted along with expected postoperative soft tissue swelling with deep tissue air. No acute fracture or un expected opaque foreign body. Mild right hip osteoarthritis. IMPRESSION: Left hip total joint arthroplasty with expected postoperative changes. ACT 112: Negative or not required by law. The above report was generated using voice recognition software. It may contain grammatical, syntax o r spelling errors. Electronically signed by: Freddy Rodriguez M.D. 12/17/2021 9:04 AM
[2021-12-17] MEDS ORDERED: MoRPHine SULFATE PF 1 MG/ML 10 ML AMP/VIAL INT SPINAL ONE (10:36)
[2021-12-17] MEDS ORDERED: LACTATED RINGER'S 500 ML IV PRN (10:36)
[2021-12-17] MEDS ORDERED: NALOXONE HCL 0.4 MG/1 ML VIAL/CARP IV PRN (10:36)
[2021-12-17] MEDS ORDERED: NALBUPHINE HCL INJ 10 MG/ML AMP IV PRN (10:36)
[2021-12-17] MEDS ORDERED: diphenhydrAMINE 50 MG/ML VIAL IV PRN (10:36)
[2021-12-17] MEDS ORDERED: MoRPHine SULFATE 2 MG/ML CARP IV PRN (10:36)
[2021-12-17] MEDS ORDERED: ONDANSETRON INJ 2 MG/ML 2 ML VIAL IV PRN (10:36)
[2021-12-17] MEDS ORDERED: KETOROLAC 30 MG/ML VIAL IV PRN (10:36)
[2021-12-17] MEDS ORDERED: ePHEDrine sulfate 50 MG/ML AMP IV PRN (10:36)
[2021-12-17] MEDS ORDERED: NALOXONE HCL 0.08 MG in SYRINGE 1.8 ML IV PRN (10:36)
[2021-12-17] MEDS ORDERED: MEPERIDINE HCL 25 MG/ML CARP/VIAL IV PRN (10:36)
[2021-12-17] MEDS ORDERED: NALOXONE HCL 1 MG in SODIUM CHLORIDE 0.9% 1000ML 1,000 ML IV PRN (10:36)
[2021-12-17] MEDS ORDERED: PROMETHAZINE HCL 6.25 MG in SODIUM CHLORIDE 0.9% 50 ML IV PRN (10:36)
[2021-12-17] MEDS ORDERED: HYDROmorphone INJ 0.5 MG/0.5 ML SYR IV PRN (10:36)
--- NOTE | 2021-12-17 10:38 | Anesthesiology Progress Note ---
Date of Service December 17, 2021 Anesthesia Post Procedure Vital Signs Vital Signs: Temp Pulse Pulse Resp BP Pulse Ox 12/17/21 10:30 54 L 13 121/75 98 12/17/21 10:15 52 L 14 106/62 99 12/17/21 10:00 51 L 16 105/61 99 12/17/21 09:45 49 L 13 100/62 100 12/17/21 09:30 50 L 15 103/61 100 12/17/21 09:15 69 17 99/66 L 92 12/17/21 09:05 70 17 104/65 95 12/17/21 08:55 36.4 C L 67 19 104/56 L 98 12/17/21 08:45 67 18 102/61 100 12/17/21 08:38 36.6 C 72 14 98/56 L 99 12/17/21 05:43 37 C 94 H 20 169/96 H 96 Transfer of Care Handoff Completed per policy Notes Mental Status: alert / awake / arousable Patient Amnestic to Procedure: Yes Nausea / Vomiting: adequately controlled Pain: adequately controlled Airway Patency, RR, SpO2: stable & adequate BP & HR: stable & adequate Hydration State: stable & adequate Neuraxial Anesthesia: was administered and sensory block is resolving Anesthetic Complications: no major complications apparent and Pt Satisfied with anesthetic care
[2021-12-17] MEDS ORDERED: SODIUM CHLORIDE 0.9% 1000ML 1,000 ML IV SCH (10:45)
[2021-12-17] MEDS ORDERED: NO NARCOTICS OR SEDATIVES SCH (10:45)
[2021-12-17] MEDS ORDERED: diphenhydrAMINE 50 MG/ML VIAL IV STA (11:08)
[2021-12-17] MEDS ORDERED: diphenhydrAMINE 50 MG/ML VIAL ONE (11:12)
[2021-12-17] MEDS ORDERED: bisacodyL 10 MG SUPP PR PRN (11:29)
[2021-12-17] MEDS ORDERED: MAGNESIUM HYDROXIDE SUSP 30 ML UDC PO PRN (11:29)
[2021-12-17] MEDS ORDERED: MULTIVITAMIN TAB PO SCH (11:29)
[2021-12-17] MEDS ORDERED: METOCLOPRAMIDE HCL INJ 5 MG/ML 2 ML VIAL IV PRN (11:29)
[2021-12-17] MEDS ORDERED: ALUMINUM/MAGNESIUM SUSP 30 ML UDC PO PRN (11:29)
[2021-12-17] MEDS: SODIUM CHLORIDE 0.9% 1000ML 1,000 ML IV SCH ×2 (11:44→21:24)
[2021-12-17] MEDS: ASPIRIN 81 MG ECTAB PO SCH ×2 (12:06→21:28)
[2021-12-17] MEDS: dilTIAZem ER 180 MG CAPCR PO SCH (12:07)
[2021-12-17] MEDS: MULTIVITAMIN TAB PO SCH (12:07)
[2021-12-17] MEDS: busPIRone 7.5 MG TAB PO SCH ×2 (12:07→21:28)
[2021-12-17] MEDS: DOCUSATE SODIUM 100 MG CAP PO SCH ×2 (12:07→21:28)
[2021-12-17] MEDS: DOCUSATE SODIUM/SENNA 50/8.6MG TAB PO SCH (12:07)
[2021-12-17] MEDS: ACETAMINOPHEN 500 MG TAB PO SCH ×2 (14:08→21:29)
--- NOTE | 2021-12-17 14:57 | Progress Notes ---
DATE OF SERVICE: 12/17/2021. SUBJECTIVE: A 66-year-old white female now postop from a left total hip [facility]. She is doing well. Just feels a little bit lightheaded and with a little vertigo. She denies a ny hip pain. No chest pain or shortness of breath. OBJECTIVE: VITAL SIGNS: Temperature 36.5. Vital signs are stable. GENERAL: Shows a pleasant middle-aged female. I had to wake her when I went in the room this aftern oon. EXTREMITIES: Examination of the left hip reveals leg lengths to be equal. She can dorsiflex and emma ntarflex her foot appropriately. She is neurologically intact. Thigh is soft and supple. X-RAYS: X-rays of the left hip from recovery room are reviewed. It shows left uncemented hip replac ement. Components looked to be in good position. No signs of problems. ASSESSMENT: A 66-year-old white female postop from a left hip replacement, doing pretty well. Pain is controlled. Hip is located. She is having a little bit of vertigo apparently which she has had b efore. PLAN: 1. DVT prophylaxis includes thigh-high TEDs, SCDs, and aspirin twice a day. 2. PT, OT, weightbear as tolerated. Left total hip protocol. 3. Pain control, doing okay with current pain regimen. 4. IV antibiotics x24 hours. 5. Disposition: She is hoping to be discharged to home. She is going to have assistance from famil y members. Job ID: [id number]
[2021-12-17] MEDS ORDERED: TRANEXAMIC ACID / 0.7% NACL 1,000 MG/100 ML BAG IV SCH (15:00)
[2021-12-17] MEDS: Scopolamine CHECK PATCH PLACEMENT SCH ×2 (15:19→22:16)
[2021-12-17] MEDS: ceFAZolin 2000MG 2,000 MG/15 ML SYR IV SCH ×2 (15:34→21:31)
[2021-12-17] MEDS: ASCORBIC ACID 500 MG TAB PO SCH (15:34)
[2021-12-17] MEDS ORDERED: SIMVASTATIN 20 MG TAB PO SCH (21:00)
[2021-12-17] MEDS ORDERED: SENNA 8.6 MG TAB PO SCH (21:00)
[2021-12-18] MEDS: ACETAMINOPHEN 500 MG TAB PO SCH (06:10)
[2021-12-18 06:24] LABS: Basophils # (auto) 0.02 K/uL (0-0.2); Basophils % (auto) 0.2 %; Eosinophils # (auto) 0.09 K/uL (0-0.5); Eosinophils % (auto) 0.9 %; Hematocrit (blood only) 37.4 % (37-47); Hemoglobin 12.3 g/dL (12.0-16.0); Immature Granulocytes # (auto) 0.02 K/uL (0.00-0.02); Immature Granulocytes % (auto) 0.2 %; Lymphocytes # (auto) 1.84 K/uL (1.2-3.4); Lymphocytes % (auto) 18.7 %; Mean Corpuscular Hemoglobin 30.4 pg (25-34); Mean Corpuscular Hgb Conc 32.9 g/dL (32-36); Mean Corpuscular Volume 92.3 fL (80-100); Mean Platelet Volume 9.3 fL (7.4-10.4); Monocytes # (auto) 1.03 K/uL (0.11-0.59); Monocytes % (auto) 10.5 %; Neutrophils # (auto) 6.84 K/uL (1.4-6.5); Neutrophils % (auto) 69.5 %; Platelet Count 228 K/uL (130-400); RDW Coefficient of Variation 13.3 % (11.5-14.5); RDW Standard Deviation 45.1 fL (36.4-46.3); Red Blood Count 4.05 M/uL (4.2-5.4); White Blood Count 9.84 K/uL (4.8-10.8)
[2021-12-18 06:37] LABS: BUN Creatinine Ratio 14.7 (10-20); Calcium 7.9 mg/dl (8.5-10.1); Creatinine Clr Calc Pharmacy 83.3 ml/min; Est GFR (African American) 106.4 ml/min; Est GFR (Non-African American) 91.8 ml/min
[2021-12-18] MEDS: dilTIAZem ER 180 MG CAPCR PO SCH (07:45)
[2021-12-18] MEDS: MULTIVITAMIN TAB PO SCH (07:45)
[2021-12-18] MEDS: DOCUSATE SODIUM/SENNA 50/8.6MG TAB PO SCH (07:45)
[2021-12-18] MEDS: ASPIRIN 81 MG ECTAB PO SCH (07:45)
[2021-12-18] MEDS: busPIRone 7.5 MG TAB PO SCH (07:46)
[2021-12-18] MEDS: DOCUSATE SODIUM 100 MG CAP PO SCH (07:46)
[2021-12-18] MEDS: Scopolamine CHECK PATCH PLACEMENT SCH (07:46)
[2021-12-18] MEDS: ASCORBIC ACID 500 MG TAB PO SCH (07:46)
[2021-12-18] MEDS ORDERED: dexAMETHasone 10 MG in SYRINGE 0 ML IV SCH (10:00)
[2021-12-18] MEDS ORDERED: traMADol HCL 50 MG TABLET PO PRN (10:45)
[2021-12-18] MEDS ORDERED: diphenhydrAMINE Capsule 25 MG CAP PO PRN (10:45)
[2021-12-18] MEDS ORDERED: ONDANSETRON INJ 2 MG/ML 2 ML VIAL IV PRN (10:45)
[2021-12-18] MEDS ORDERED: HYDROmorphone INJ 0.5 MG/0.5 ML SYR IV PRN (10:45)
[2021-12-18] MEDS ORDERED: NALOXONE HCL 0.4 MG/1 ML VIAL/CARP IV PRN (10:45)
[2021-12-18] MEDS ORDERED: DC INTRASPINAL MORPHINE ONE (10:45)
[2021-12-18] MEDS ORDERED: KETOROLAC 30 MG/ML VIAL IV SCH (12:00)
--- NOTE | 2021-12-18 12:14 | Progress Notes ---
DATE OF SERVICE: 12/18/2021. SUBJECTIVE: A 66-year-old female, postoperative day 1 from a left hip replacement. She is doing pre tty well. Therapy went well. No chest pain or shortness of breath. Not feeling dizzy or lightheade d. OBJECTIVE: VITAL SIGNS: Temperature is 37.0. Vital signs are stable. PHYSICAL EXAMINATION: GENERAL: Shows a pleasant middle-aged female. She is sitting up in her bedside chair, looks reasona maria d comfortable. EXTREMITIES: Examination of the left hip and leg reveals the dressing to be clean, dry and intact. Leg lengths appear equal. She can dorsiflex and plantarflex her foot appropriately. She is neurolog ically intact. LABORATORY DATA: Hemoglobin 12.3. Hematocrit 37.4. Electrolytes are stable. ASSESSMENT: A 66-year-old female, postoperative day 1 from a left hip replacement, doing pretty well . Pain is controlled. Hip is located. She is neurologically intact. PLAN: 1. DVT prophylaxis includes thigh-high TEDs, SCDs, and aspirin twice a day. 2. PT, OT, weightbear as tolerated. Left total knee protocol. 3. Pain control, doing okay with current pain regimen. 4. Disposition: Plan to discharge to home with some home health likely later today. Job ID: [id number]
--- NOTE | 2021-12-21 07:25 | Discharge Summary ---
Date of Service December 21, 2021 Discharge Data Procedures Performed Operation Date: 12/17/21 07:00 Actual Procedures p Left Total Hip Arthroplasty---uncemented(Left) - Scott Desir MD Hospital Course (1) S/P total left hip arthroplasty: This is a 66 year old patient admitted on 12/17/21 and underwent total hip arthroplasty. She tolerated the procedure well and there were no complications. Transferred to the PACU post op and later to the orthopedic floor for further care. She was given ancef for antibiotic prophylaxis. She was also given KVNG stockings, SCDs, and aspirin for DVT prophylaxis. Hemoglobin, hematocrit, and vital signs were monitored during her hospital stay and remained stable. Did not require any blood transfusions. There were no complications during her hospital stay. By post op day #1 the patient was tolerating a regular diet, pain was reasonably controlled with oral pain medicine, and she was participating in physical therapy. On post op day #1 the patient was discharged home and set up with home health care. She was given printed discharge instructions including prescriptions for extra strength tylenol, aspirin, toradol, zofran, and tramadol . Continue physical therapy, weight bearing as tolerated. Continue hip precautions. Continue KVNG stockings. Follow up approximately 2 weeks post op or sooner if there are problems or concerns. Coding Level of Care Code None Diagnoses S/P total left hip arthroplasty Z96.642
== END 2021-12-18 14:04 | disposition home health service (06) ==
LOC: ASU 05:17 → 3E 05:17